=== PATIENT | male | born 1975 ===

== ENCOUNTER 2023-01-30 09:44 | Emergency (ER) | payer OTHER ==
[~2023-01-30] VITALS: Ht 165.1 cm; Wt 68.0 kg
[2023-01-30] MEDS ORDERED: GABAPENTIN100 M2 PO (10:03)
[2023-01-30] MEDS ORDERED: NORFLEX100MG PO (10:04)
[2023-01-30] MEDS ORDERED: TOPROL XL25 M1 PO (10:06)
== END 2023-01-30 12:20 | disposition home or self-care (01) ==
LOC: ER 09:44
DX: F06.4 Anxiety disorder due to known physiological condition (principal); I10 Essential (primary) hypertension; R07.89 Other chest pain